=== PATIENT | female | born 1985 | race Two or more races ===

== ENCOUNTER 2024-09-05 18:25 | Emergency (ER) | payer MEDICAID, SELFPAY ==
[2024-09-05 19:38] VITALS: BP 153/99; PULSE 92; RESP 18; TEMP 36.6; O2SAT 97; BMI 37.9
--- NOTE | 2024-09-05 19:47 | XR_ITS ---
Examination: PA lateral chest 2 views Technique: Upright PA lateral chest 2 views Exam date and time: September 05, 20242000 hrs. Indications: Shortness of breath coughing beginning one week ago. Findings: Normal heart size. Lungs are clear. The osseous structures are intact Impression: No active disease
--- NOTE | 2024-09-05 20:24 | PD.EDURI ---
Upper Respiratory Inf. RME/HPI General Chief Complaint: Flu Like Symptoms Stated Complaint: I HAVE THE FLU I THINK Time Seen by Provider: 09/05/24 19:46 Arrival date/time: 09/05/24 18:25 39F with no significant PMH presents to ED with 1 week of cough. Patient went to clinic and is taking cough meds and a Z-kelsy. Son has similar symptoms, but mom had it first. Limitations: no limitations Related Data Previous Rx's ?Medication ?Instructions ?Recorded ibuprofen 800 mg tablet 800 mg PO TID #30 tabs 11/22/18 hydroxyzine HCl 10 mg tablet 10 mg PO .qhs PRN nausea and 07/22/22 vomiting #20 tabs diphenhydramine HCl 25 mg capsule 25 mg PO TID PRN allergic reaction 06/15/23 (Allergy (diphenhydramine)) #30 caps Allergies Allergy/AdvReac Type Severity Reaction Status Date / Time No Known Allergies Allergy Verified 09/05/24 18:29 Review of Systems Review of Systems Systems Reviewed: All systems reviewed, normal except as documented Constitutional Constitutional: Reports system reviewed and no additional complaints, except as documented, Denies fever(s) and Denies headache(s) ENT Ears, Nose, Mouth, and Throat: Denies disequilibrium and Denies headache(s) Cardiovascular Cardiovascular: Reports system reviewed and no additional complaints, except as documented, Denies chest pain and Denies dyspnea Respiratory Respiratory: Reports system reviewed and no additional complaints, except as documented, Reports as per HPI, Reports cough and Denies dyspnea Gastrointestinal Gastrointestinal: Reports system reviewed and no additional complaints, except as documented, Denies abdominal pain, Denies nausea and Denies vomiting Neurologic Neurologic: Reports system reviewed and no additional complaints, except as documented, Denies confusion, Denies disequilibrium and Denies headache(s) Psychiatric Psychiatric: Denies confusion Past Medical History Social History SMOKING STATUS: Never smoker ED Exam General Limitations: Present no limitations General appearance: Present alert and in no apparent distress Head Head exam: Present atraumatic Eye Eye exam: Present normal appearance, PERRL and EOMI ENT ENT exam: Present normal exam, normal oropharynx and mucous membranes moist Neck Neck exam: Present normal inspection, full ROM and trachea midline Chest Chest inspection: Present normal inspection and symmetric chest wall rise Respiratory Respiratory exam: Present normal lung sounds bilaterally Cardiovascular Cardiovascular exam: Present regular rate, normal rhythm and normal heart sounds Abdominal Exam Abdominal exam: Present soft and normal bowel sounds Extremities Exam Extremities exam: Present normal inspection and full ROM Back Exam Back exam: Present normal inspection and full ROM Neurological Exam Neurological exam: Present alert, oriented X3 and CN II-XII intact Psychiatric Psychiatric exam: Present normal affect and normal mood Skin Skin exam: Present warm, dry, intact and normal color Course Quality Measures none Orders Category Date Time Status Bedside COVID-19 Antigen Test NOW Care 09/05/24 19:47 Completed Bedside Influenza A&B Antigen Test NOW Care 09/05/24 19:47 Completed XR chest 2V Stat Exams 09/05/24 19:47 Completed Dexamethasone Inj [Decadron Inj] Med 09/05/24 20:52 Discontinued 10 mg PO X1 ONE Vital Signs Vital signs: Vital Signs Temperature 97.8 F 09/05/24 19:38 Pulse Rate 92 09/05/24 19:38 Respiratory Rate 18 09/05/24 19:38 Blood Pressure 153/99 H 09/05/24 19:38 Pulse Oximetry (%) 97 09/05/24 19:38 Oxygen Delivery Method Room Air 09/05/24 19:38 O2 at 97% on RA and WNLs Upper Respiratory Infection MDM Narrative MDM Narrative:: 39F with no significant PMH presents to ED with 1 week of cough. Patient went to clinic and is taking cough meds and a Z-kelsy. Son has similar symptoms, but mom had it first. Physical exam reveals nasal congestion, but clear ENT and lungs. Patient is afebrile, calm, and alert. Swabs neg. CXR normal. Likely viral URI. Patient data External records reviewed:: [facility] previous records Clinical information provided by:: patient Social determinants that could affect healthcare access:: none Patient has the following chronic illnesses:: none How is presenting disease/condition affected by chronic disease/condition?: no chronic disease Evaluation data The following diagnostics were reviewed and interpreted by me:: lab results and radiology exam(s) Lab and/or radiology exams considered but not ordered:: ordered Interpretation Summary: above Medications / Prescriptions Medications or Prescriptions considered but not ordered:: not ordered Medication administrations:: Medication Administration History Discontinued Medications Dexamethasone Sodium Phosphate (Dexamethasone Sod Phos Inj 10 Mg/Ml Vial) 10 mg PO X1 ONE Stop: 09/05/24 20:53 n/a Consultations Consultation(s) initiated? (list below): No Diagnosis Upper Respiratory Differential Diagnosis: upper respiratory infection, croup, otitis media, sinusitis, viral infection, bronchitis, influenza, pharyngitis and other (CAP) Most likely diagnosis given after review of the tests above:: URI Admission Indicated Admission indicated?: not indicated Admission Request Was there a request for admission?: No Disposition Plan Disposition Plan: Discharge Discharge Attestation Discharge Attestation: The patient and all family members were given an opportunity to ask questions and understood the discharge instructions. Discharge instructions specifically effects, indications for sooner follow up or return to the emergency department, and the expected course of current diagnosis. Patient condition: Stable Discharge Plan Plan Patient Disposition: HOME (Self Care) Disposition Comment: Stable Prescriptions/Referrals Prescriptions/Med Rec: No Action ibuprofen 800 mg tablet 800 mg PO TID Qty: 30 0RF hydroxyzine HCl 10 mg tablet 10 mg PO .qhs PRN (Reason: nausea and vomiting) Qty: 20 0RF diphenhydramine HCl [Allergy (diphenhydramine)] 25 mg capsule 25 mg PO TID PRN (Reason: allergic reaction) Qty: 30 0RF Referrals: No Primary/Family,Physician [Primary Care Provider] - In 1 week Problem List Clinical Impression: Upper respiratory infection Patient/Caregiver Discharge Instructions Additional Instructions: Please follow-up with PCP within 24-48 hours and return immediately if symptoms worsen. Ibuprofen/Tylenol can be used simultaneously for greater fever/pain control. Benadryl is good for cough, congestion, and sleep. Can finish Z-kelsy. Print Language: Chilean Stand Alone Forms: Patient Portal Info Letter BALWINDER/VÍCTOR Supervising Physician VIRGILIO Supervising Physician: Dr. Rivas
[2024-09-05] MEDS: DEXAMETHASONE SOD PHOS INJ 10 MG/ML VIAL PO (22:35)
== END 2024-09-05 22:39 | disposition home or self-care (01) ==
PROVIDERS: Emergency Provider Emergency Medicine
DX: J06.9 Acute upper respiratory infection, unspecified (principal)
CPT/HCPCS: 71046; 87400; 87811; 99283; J1100

== ENCOUNTER 2024-10-23 02:51 | Emergency (ER) | payer MEDICAID, SELFPAY ==
[2024-10-23] VITALS (7 sets, daily range): BP systolic 113–131; BP diastolic 78–96; PULSE 90–117; RESP 18–20; TEMP 36.7–36.8; O2SAT 97–100; BMI 37.9
--- NOTE | 2024-10-23 03:14 | XR_ITS ---
Examination: PA chest single view TECHNIQUE: Upright PA chest single view Exam date and time: October 23, 2024 0326 hours Comparison September 05, 2024 INDICATIONS: Coughing beginning 5 days ago. FINDINGS: Normal heart size The lungs are clear. Intact osseous structures IMPRESSION: No active disease
[2024-10-23] MEDS: DEXAMETHASONE SOD PHOS INJ 10 MG/ML VIAL PO (03:40)
[2024-10-23] MEDS: ALBUTEROL/IPRATROPIUM (Duoneb) RT SOL 3 ML NEBU 6 ML INH (03:54)
--- NOTE | 2024-10-23 05:20 | EDRME_ITS ---
Rapid Medical Screening Exam [facility] Arrival date/time: 10/23/24 02:51 39F with no significant PMH presents to ED with 5 days of cough and wheezing. Patient has known history of asthma/COPD. Chief Complaint: Flu Like Symptoms Time Seen by Provider: 10/23/24 03:13 Vital signs: Vital Signs Temperature 98.0 F 10/23/24 03:00 Pulse Rate 99 10/23/24 03:00 Respiratory Rate 18 10/23/24 03:00 Blood Pressure 131/96 H 10/23/24 03:00 Pulse Oximetry (%) 97 10/23/24 03:00 Oxygen Delivery Method Room Air 10/23/24 03:00
[2024-10-23] MEDS: BUDESONIDE RT 0.5 MG/2 ML NEBU INH (05:27)
[2024-10-23] MEDS: ALBUTEROL/IPRATROPIUM (Duoneb) RT SOL 3 ML NEBU INH (05:27)
--- NOTE | 2024-10-23 06:34 | EDNOTE_ITS ---
Upper Respiratory Inf. RME/HPI General Chief Complaint: Flu Like Symptoms Stated Complaint: COUGH and WHEEZING X 5DAYS Time Seen by Provider: 10/23/24 03:13 Source: patient Arrival date/time: 10/23/24 0600 This is a 39-year-old female Who presents to the emergency department with complaints of wheezing and cough for 1 week. history of recent URI and history of asthma. States has been using her inhalers with no relief of symptoms. Denies fever, chest pain no dyspnea. + wheezing RME / HPI RME / HPI Narrative: 10/23/24 02:51 39F with no significant PMH presents to ED with 5 days of cough and wheezing. Jerzy adair has known history of asthma/COPD. Related Data Previous Rx's ?Medication ?Instructions ?Recorded ibuprofen 800 mg tablet 800 mg PO TID #30 tabs 11/22/18 hydroxyzine HCl 10 mg tablet 10 mg PO .qhs PRN nausea and 07/22/22 vomiting #20 tabs diphenhydramine HCl 25 mg capsule 25 mg PO TID PRN allergic reaction 06/15/23 (Allergy (diphenhydramine)) #30 caps albuterol sulfate 90 mcg/actuation 2 puff inhalation Q6H PRN 10/23/24 aerosol inhaler (Ventolin HFA) shortness of breath or wheezing #8.5 grams amoxicillin 875 mg-potassium 1 tab PO BID #14 tabs 10/23/24 clavulanate 125 mg tablet ipratropium bromide 17 2 inh inhalation Q6H PRN shortness 10/23/24 mcg/actuation HFA aerosol inhaler of breath or wheezing #12.9 grams Allergies Allergy/AdvReac Type Severity Reaction Status Date / Time No Known Allergies Allergy Verified 09/05/24 18:29 Review of Systems Review of Systems Systems Reviewed: All systems reviewed, normal except as documented Narrative Review of Systems: Gen: No fever, no chills, no weight loss EYES: No discharge, no visual changes, no pain HEENT: No ear pain, ++ congestion, no sore throat PULM: No shortness of breath, ++ cough, no congestion, +wheezing CV: No chest pain, no dyspnea on exertion, no palpitations GI: No nausea, no vomiting, no diarrhea, no pain, no constipation : No frequency, no urgency,? no dysuria Musc/skel: No joint pain, no back pain Skin: No rash? Psyc: No hallucinations, no depression Heme/Lymph: No easy bleeding or bruising tendencies Neuro: No weakness, no headache ED Exam Narrative Physical exam: General: Sittiing in Exam table in no acute distress, answering questions appropriately HENT: normocephalic, atraumatic, EOMI, PERRLA, moist mucous membranes Chest: chest wall is nontender Cardiac: regular rate and rhythm, normal S1 and S2, no murmurs, rubs, or gallops, capillary refill ?2 seconds Pulmonary:++ wheezing, crackles, or rhonchi Abdominal: active bowel sounds, soft, nontender, nondistended Neuro: A&OX3, CN II-XII intact, sensation grossly intact bilaterally in UE and LE. Skin: no rashes, no ecchymosis Ext: no lower extremity edema Course Quality Measures none Orders Category Date Time Status Bedside Influenza A&B Antigen Test NOW Care 10/23/24 02:58 Completed XR chest 1V portable Stat Exams 10/23/24 03:14 Completed ALBUTEROL RT 0.5ml [Proventil Rt 0.5ml] Med 10/23/24 06:35 Discontinued 2.5 mg INH X1 ONE Albuterol/Ipratr Rt Gudelia [Duoneb Rt Gudelia] Med 10/23/24 05:19 Discontinued 3 ml INH X1 ONE Albuterol/Ipratr Rt Gudelia [Duoneb Rt Gudelia] Med 10/23/24 03:14 Discontinued 6 ml INH X1 ONE Budesonide Rt [Pulmicort Rt Gudelia] Med 10/23/24 05:19 Discontinued 0.5 mg INH X1 ONE Dexamethasone Inj [Decadron Inj] Med 10/23/24 03:14 Discontinued 10 mg PO X1 ONE MethylPREDNISolone.* [SoluMEDROL Inj] Med 10/23/24 06:35 Discontinued 125 mg IM X1 ONE Sodium Chloride Rt Gudelia 0.9% [NS Rt Gudelia 0.9%] Med 10/23/24 06:35 Discontinued 3 ml INH PRN PRN Vital Signs Vital signs: Vital Signs Temperature 98.0 F 10/23/24 03:00 Pulse Rate 99 10/23/24 03:00 Respiratory Rate 18 10/23/24 03:00 Blood Pressure 131/96 H 10/23/24 03:00 Pulse Oximetry (%) 97 12/27/24 03:00 Oxygen Delivery Method Room Air 10/23/24 03:00 Upper Respiratory Infection MDM Narrative MDM Narrative:: 39F with no significant PMH presents to ED with 1 week of cough. Patient went to clinic and is taking cough meds and a Z-kelsy. Son has similar symptoms, but mom had it first. Physical exam reveals nasal congestion, but clear ENT and lungs. Patient is afebrile, calm, and alert. Swabs neg. CXR normal. Likely viral URI. Patient data External records reviewed:: [facility] previous records Clinical information provided by:: patient Social determinants that could affect healthcare access:: none Patient has the following chronic illnesses:: none How is presenting disease/condition affected by chronic disease/condition?: no chronic disease Evaluation data The following diagnostics were reviewed and interpreted by me:: lab results and radiology exam(s) Lab and/or radiology exams considered but not ordered:: ordered Interpretation Summary: Examination: PA chest single view TECHNIQUE: Upright PA chest single view Exam date and time: October 23, 2024 0326 hours Comparison September 05, 2024 INDICATIONS: Coughing beginning 5 days ago. FINDINGS: Normal heart size The lungs are clear. Intact osseous structures IMPRESSION: No active disease Medications / Prescriptions Medications or Prescriptions considered but not ordered:: not ordered Medication administrations:: Medication Administration History Discontinued Medications Albuterol (Albuterol Rt 2.5 Mg/0.5 Ml Nebu) 2.5 mg INH X1 ONE Stop: 10/23/24 06:36 Last Admin: 10/23/24 06:52 Dose: 2.5 mg Documented By: OLYA Albuterol/Ipratropium (Albuterol/Ipratropium (Duoneb) Rt Gudelia 3 Ml Nebu) 6 ml INH X1 ONE Stop: 10/23/24 03:15 Last Admin: 10/23/24 03:54 Dose: 6 ml Documented By: NANCY Albuterol/Ipratropium (Albuterol/Ipratropium (Duoneb) Rt Gudelia 3 Ml Nebu) 3 ml INH X1 ONE Stop: 10/23/24 05:20 Last Admin: 10/23/24 05:27 Dose: 3 ml Documented By: NANCY Budesonide (Budesonide Rt 0.5 Mg/2 Ml Nebu) 0.5 mg INH X1 ONE Stop: 10/23/24 05:20 Last Admin: 10/23/24 05:27 Dose: 0.5 mg Documented By: NANCY Dexamethasone Sodium Phosphate (Dexamethasone Sod Phos Inj 10 Mg/Ml Vial) 10 mg PO X1 ONE Stop: 10/23/24 03:15 Last Admin: 10/23/24 03:40 Dose: 10 mg Documented By: CVL Methylprednisolone Sodium Succinate (Methylprednisolone Sod Succ 62.5 Mg/Ml 2ml Vial) 125 mg IM X1 ONE Stop: 10/23/24 06:36 Last Admin: 10/23/24 06:41 Dose: 125 mg Documented By: CVL Sodium Chloride (Sodium Chloride Rt Gudelia 0.9% 3 Ml Nebu) 3 ml INH PRN PRN PRN Reason: SOLN Stop: 11/22/24 06:34 Last Admin: 10/23/24 06:51 Dose: 3 ml Documented By: OLYA all medications administered and effective Consultations Consultation(s) initiated? (list below): No Diagnosis Upper Respiratory Differential Diagnosis: upper respiratory infection, croup, otitis media, sinusitis, viral infection, bronchitis, influenza and pharyngitis Most likely diagnosis given after review of the tests above:: URI Admission Indicated Admission indicated?: not indicated Admission Request Was there a request for admission?: No Disposition Plan Disposition Plan: Discharge Discharge Attestation Discharge Attestation: The patient and all family members were given an opportunity to ask questions and understood the discharge instructions. Discharge instructions specifically effects, indications for sooner follow up or return to the emergency department, and the expected course of current diagnosis. Patient condition: Stable Discharge Plan Plan Patient Disposition: HOME (Self Care) Patient condition on transfer: Stable Prescriptions/Referrals Prescriptions/Med Rec: New ipratropium bromide 17 mcg/actuation HFA aerosol inhaler 2 inh inhalation Q6H PRN (Reason: shortness of breath or wheezing) Qty: 12.9 0RF albuterol sulfate [Ventolin HFA] 90 mcg/actuation HFA aerosol inhaler 2 puff inhalation Q6H PRN (Reason: shortness of breath or wheezing) Qty: 8.5 0RF amoxicillin-pot clavulanate 875-125 mg tablet 1 tab PO BID Qty: 14 0RF No Action ibuprofen 800 mg tablet 800 mg PO TID Qty: 30 0RF hydroxyzine HCl 10 mg tablet 10 mg PO .qhs PRN (Reason: nausea and vomiting) Qty: 20 0RF diphenhydramine HCl [Allergy (diphenhydramine)] 25 mg capsule 25 mg PO TID PRN (Reason: allergic reaction) Qty: 30 0RF Referrals: No Primary/Family,Physician [Primary Care Provider] - In 1 week Problem List Clinical Impression: Acute bronchitis with wheezing Patient/Caregiver Discharge Instructions Discharge Activity: activity as tolerated Education Materials: ED Bronchitis with Wheezing (Adult) Additional Instructions: -Comience franks tratamiento con esteroides ma?delvin por la ma?delvin -Comience hoy mismo con los antibi?ticos. -Contin?e usando los inhaladores seg?n las indicaciones en franks hogar. Vuelva a consultar a franks m?dico de cabecera el lunes para recibir atenci?n de seguimiento. Regrese al departamento de emergencias si los s?ntomas empeoran o si franks condici?n cambia. -Start your steroid course tomorrow morning -Start your antibiotics today. -Continue using inhalers as directed at home. Follow-up with your primary doctor On Saturday for follow-up care Return to the emergency department this any worsening symptoms change in condition. Print Language: Vietnamese Stand Alone Forms: [place] Award Info., Patient Portal Info Letter JERZY/VÍCTOR Supervising Physician JERZY/VÍCTOR Supervising Physician: Dr Jansen
[2024-10-23] MEDS: MethylPREDNISolone SOD SUCC 62.5 MG/ML 2ML VIAL 125 MG IM (06:41)
[2024-10-23] MEDS: SODIUM CHLORIDE RT SOL 0.9% 3 ML NEBU INH (06:51)
[2024-10-23] MEDS: ALBUTEROL RT 2.5 MG/0.5 ML NEBU INH (06:52)
== END 2024-10-23 07:32 | disposition home or self-care (01) ==
PROVIDERS: Emergency Provider Emergency Medicine
DX: J20.9 Acute bronchitis, unspecified (principal)
CPT/HCPCS: 71045; 87400; 94640; 96372; 99284; A9270; J1100; J2919

== ENCOUNTER → 2025-06-23 | Outpatient (CLI) | payer MEDICAID, SELFPAY ==
--- NOTE | 2025-06-23 16:15 | XR_ITS ---
Exam: MRI knee without contrast, right Date and time of exam: August 23, 2025 1511 hours INDICATIONS: Right knee pain months, palpable mass in the calf Technique: Multiple axial, coronal, and sagittal sections on the knee have been obtained. T2-Weighted sagittal, fat-suppressed images, TR 3,500, TE 62, T2 weighted coronal fat-saturated images, TR 3,500, TE 62 Proton density sagittal sections, TR 1800, TE 31. T-1 weighted coronal images, TR 524, TE 13.0 Findings: Medial meniscus anterior horn intact. Medial meniscus, body intact. Posterior horn medial meniscus truncation inner. Lateral meniscus anterior horn is intact Lateral meniscus, body is intact Posterior horn lateral meniscus is intact Anterior cruciate ligament moderate attenuation Posterior cruciate ligament appears intact. Knee effusion is small. Quadriceps and patellar tendons appear intact. There is no evidence of tendinosis. Inflammatory change or fracture of Hoffa's fat pad is not seen. Medial patellar facet demonstrates no thinning. Lateral patellar facet cartilage demonstrates no thinning. Trochlear cartilage demonstrates no thinning. Marrow signal adequate. Medial collateral ligament appears intact. No meniscocapsular separation is seen. Illiotibial band and fibular collateral ligament are intact. Biceps femoris tendons appear intact. Medial femoral condylar articular cartilage demonstrates mild thinning. Lateral femoral condylar articular cartilage demonstratesmild thinning. Tibial plateau cartilage demonstrates mild thinning. Impression: Small tear posterior horn medial meniscus. Moderate attenuation anterior cruciate ligament Partial visualization at least 2 cm cyst adjacent to the proximal lateral tibial shaft, recommend ultrasound soft tissue knee follow-up
== END | disposition home or self-care (01) ==
PROVIDERS: Referring Provider Orthopaedic Surgery; Visit Provider Orthopaedic Surgery
DX: S83.241A Other tear of medial meniscus, current injury, right knee, initial encounter (principal); X58.XXXA Exposure to other specified factors, initial encounter; M25.861 Other specified joint disorders, right knee
CPT/HCPCS: 73721